=== PATIENT | female | born 1940 | race Caucasian/White ===

== ENCOUNTER → 2016-07-26 | Outpatient (CLI) | payer MEDICARE, BC ==
[~2016-07-26] MED LIST: ALEVE 220MG220 MG PO; ALLOPURINOL100 MG PO; CALAN SR240 MG PO; EPA FISH OIL1000 MG PO; FERROUS SU325 MG/TAB PO; FLAX OIL1000 MG PO; FOLIC ACID; FOLIC ACID 40400 MCG PO; HCTZ 25MG25 MG PO; LISINOPRIL20 MG PO; TYLENOL ARTHRITIS; VITAMIN C BUFF500 MG PO; VITAMIN C250250 MG PO
== END ==
LOC: MC.RAD 11:00
DX: Z12.31 Encounter for screening mammogram for malignant neoplasm of breast (principal); N64.59 Other signs and symptoms in breast

== ENCOUNTER → 2018-03-28 | Outpatient (CLI) | payer MEDICARE, BC | LOC: MC.RAD 13:58 | DX: Z12.31 Encounter for screening mammogram for malignant neoplasm of breast (principal) ==

== ENCOUNTER → 2020-07-26 | Outpatient (CLI) | payer MEDICARE, BC | LOC: MC.RAD 06-21 14:15 | DX: Z12.31 Encounter for screening mammogram for malignant neoplasm of breast (principal) ==

== ENCOUNTER 2021-05-06 18:42 | Inpatient (IN) | payer MEDICARE, BC ==
[~2021-05-06] VITALS: Ht 175.3 cm; Wt 104.1 kg
[~2021-05-06 18:42] MED LIST changes: +HCTZ 25MG TAB25 MG PO; -HCTZ 25MG25 MG PO
[2021-05-06] MEDS ORDERED: LOPRESSOR 550 MG/TAB PO (21:11)
[2021-05-06] MEDS ORDERED: TYLENOL 500MG500 MG PO (21:13)
[2021-05-06 21:31] VITALS: BP 184/79; PULSE 59; TEMP 98
[2021-05-07] VITALS (14 sets, daily range): BP systolic 122–209; BP diastolic 66–161; PULSE 54–95; TEMP 97.9–98.4
--- NOTE | 2021-05-07 01:33 | NUR ---
Patient here from [facility]. Patient admitted with incarcerated hernia. Patient oriented to room, gown placed, surgical consent obtained, placed NPO. Patient assessed. Patient is a poor historian and relies on Neftali jones, to obtain information. Medication reconciliation was difficult to obtain. Patient non-compliant with meds. Patient reports she only takes blood pressure medication. Patient given pain medication at 1130. Resting in bed with call light near. Will continue to monitor.
--- NOTE | 2021-05-07 03:56 | NUR ---
PCT reported blood pressure of 201/111 and repeat of 229/96. Called Dr. Segovia for guidance. Luca instructed to give AM blood pressure meds. Will continue to monitor.
--- NOTE | 2021-05-07 04:14 | NUR ---
Administered 50mg PO Metoprolol to patient.
--- NOTE | 2021-05-07 05:28 | NUR ---
Obtained repeat blood pressure after administering Metoprolol. Patient's bp is now 191/102.
[2021-05-07] MEDS ORDERED: CATAPRES0.3 MG PO (10:55)
--- NOTE | 2021-05-07 11:59 | NUR ---
PT ASSESSED. NO COMPLAINTS OF PAIN OR DYSPNEA. NO SIGNS OR SYMPTOMS OF DISTRESS. CALL LIGHT WITHIN REACH
--- NOTE | 2021-05-07 14:48 | NUR ---
SW met with pt complete intake. Pt reports [place] is [place] Her son, Neftali [phone]. The pt reports independent on all ADLS and uses a cane. Pt PCP is asaf Aranda and gets her medications from [facility]. Pt reports [facility] and its her son, Neftali with paperwork. DC: Home.
[2021-05-08] VITALS (8 sets, daily range): BP systolic 144–197; BP diastolic 66–776; PULSE 51–68; TEMP 97.4–98.3
--- NOTE | 2021-05-08 04:30 | NUR ---
Pt.s pt. elevated, went to give hydralazine and IV infiltrated with flush. New iv started to lt. hand 22g. Pt. tolerated well, 1 attempt. Hydralazine given through new iv site.
[2021-05-08 06:26] LABS: HEMATOCRIT 39.5 % (37.0-47.0); HEMOGLOBIN 13.3 g/dl (12.5-16.0); MEAN CELL VOLUME 89 fl (80.0-100.0); MEAN CORPUSCULAR HEMOGLOBIN 30 pg (27-31); MEAN CORPUSCULAR HGB CONC 34 g/dl (33.0-37.0); MEAN PLATELET VOLUME 10.8 fl (7.4-10.4); PLATELET COUNT 352 K/mm3 (130-400); RED BLOOD COUNT 4.43 M/mm3 (4.10-5.30); REDCELL DISTRIBUTION WIDTH-CV 13.3 % (11.5-14.5)
[2021-05-08 06:39] LABS: CALCIUM 9.1 mg/dL (8.4-10.2); CREATININE, serum 1.49 mg/dL (0.57-1.11)
--- NOTE | 2021-05-08 08:39 | NUR ---
PT ASSESSED. NO COMPLAINTS OF PAIN OR DYSPNEA. NO SIGNS OR SYMPTOMS OF DISTRESS. CALL LIGHT WITHIN REACH
--- NOTE | 2021-05-08 20:15 | NUR ---
Pt. sitting up in chair. Pt. is A&OX3, assessment complete. INT to rt. hand patent. Pt. had elevated BP, giving iv hydralazine at this time. Pt. denies pain or other needs, call light within reach.
[2021-05-09 00:18] VITALS: BP 132/76; PULSE 61; TEMP 97.9
[2021-05-09 03:19] VITALS: BP 141/71; PULSE 54; TEMP 97.6
[2021-05-09 07:11] VITALS: BP 188/91; PULSE 58; TEMP 97.8
[2021-05-09] MEDS ORDERED: ROXICODONE 55 MG/TAB PO (08:12)
[2021-05-09] MEDS ORDERED: LEVAQUIN 5500 MG/TA1 PO (08:12)
--- NOTE | 2021-05-09 08:46 | NUR ---
Discharge is in, the PT states that she will not have a ride until the afternoon when the roads clear up from the snow. Physician is aware.
--- NOTE | 2021-05-09 13:11 | NUR ---
PT discharged to home with family. Great grandson is bedside to walk out and transport PT home. IV removed, all paperwork signed and education was given.
--- NOTE | 2021-05-09 13:40 | NUR ---
Road Gang Supervisor met with patient and patient's son, Neftali to review discharge plan. Patient lives at home and her son and grandsons live across the road from her. SW discussed Home Health services with patient who does not feel she needs them at this time.
== END 2021-05-09 13:35 | disposition home or self-care (01) | DRG 355 ==
LOC: MEDICAL 18:42 → SURG 20:08
PROVIDERS: Internal Medicine; ADMIT Surgery
PROC: 8E0W4CZ Robotic Assisted Procedure of Trunk Region, Percutaneous Endoscopic Approach (ICD-10-PCS; 2021-05-07)
PROC: 0WUF4JZ Supplement Abdominal Wall with Synthetic Substitute, Percutaneous Endoscopic Approach (ICD-10-PCS; principal; 2021-05-07 08:30)
DX: K43.6 Other and unspecified ventral hernia with obstruction, without gangrene (principal); I10 Essential (primary) hypertension; Z96.653 Presence of artificial knee joint, bilateral; Z88.0 Allergy status to penicillin; Z23 Encounter for immunization
CPT/HCPCS: 99222; 99233-AI; C1781; J0360; J0690; J1100; J1170; J1885; J2370; J2405; J2704; J3010; J3480; J7042; J7120